=== PATIENT | female | born 1995 | race Caucasian/White ===

== ENCOUNTER 2017-05-24 23:53 | Emergency (ER) | payer MEDICAID, OTHER ==
[~2017-05-24] VITALS: Ht 157.5 cm; Wt 51.0 kg
[2017-05-24 23:55] VITALS: BP 124/76; PULSE 78; RESP 16; TEMP 98.8; O2SAT 100
[2017-05-25] MEDS ORDERED: SE-NTAB3 PO (00:01)
--- NOTE | 2017-05-25 00:31 | PD ---
HPI Chief Complaint: Related Problem Time Seen by Provider: 00:26 Travel History International Travel<30 days: No Contact w/Intl Traveler<30days: No Traveled to known affect area: No History of Present Illness HPI The patient is a 21 year old female reportedly at 6 weeks gestation based on her last menstrual cycle who presents to the [facility] emergency department with a history of 3 weeks of intermittent pelvic pain. She reports that the pain will last for 5 minutes at a time. She reports that it is a dull aching sensation at times associated with intermittent sharp pains. The patient reports that the pain is in the center of her abdomen down low over the suprapubic area. She reports that this morning she had vaginal spotting. She reports that this is the first time this is occurred. She is unsure of her blood type. Her last menstrual cycle was reportedly April 02. She reports having a positive test confirmed at the health department on a half weeks ago. She is scheduled for her first appointment with women's care on June 09. She denies having any nausea or vomiting. She reports that she has had some breast tenderness. A review of systems otherwise, she denies having any other vaginal discharge, fevers, cough, congestion, neck pain, chest pain, shortness of breath,diarrhea, urinary symptoms, or neurologic symptoms. [facility] Past Medical History Narrative Medical The patient's past medical history is reportedly None. ADHD: No Cancer: No Cardiovascular Problems: No Diabetes: No Diminished Hearing: No Psychiatric: No Migraines: No Seizures: No Thyroid Disease: No Ulcer: No ?: LMP: 04-09-17 : 1 Past Surgical History Narrative Surgical The Patient's past surgical history is significant for a left foot surgery. Other Surgery: No Social History Alcohol Use: No Tobacco Use: No Substance Use: No Allergies-Medications (Allergen,Severity, Reaction): Coded Allergies: No Known Allergies (Unverified Adverse Reaction, Unknown, 05/24/17) Reported Meds & Prescriptions Reported Meds & Active Scripts Active Clindamycin (Clindamycin HCl) 300 Mg Cap 300 Mg PO BID 7 Days Reported Se- 19 29-1 mg ( Vit W/ Docusate-Fe Fu) 29 Mg Iron-1 Mg-25 Mg Tab 1 Tab PO DAILY Review of Systems Except as stated in HPI: all other systems reviewed are Neg General / Constitutional: No: Fever Eyes: No: Visual changes HENT: No: Headaches Cardiovascular: No: Chest Pain or Discomfort Respiratory: No: Shortness of Breath Gastrointestinal: Positive: Abdominal Pain, No: Nausea, Vomiting, Diarrhea Genitourinary: Positive: Pelvic Pain, Vaginal Bleeding, No: Urgency, Frequency , Dysuria, Discharge Musculoskeletal: No: Pain Skin: No Rash Neurologic: No: Weakness Psychiatric: No: Depression Endocrine: No: Polydipsia Hematologic/Lymphatic: No: Easy Bruising Physical Exam Narrative General: The patient is a well-developed well-nourished female in no acute distress. Head and Neck exam: Head is normocephalic atraumatic. Eyes: EOMI, pupils are equal round and reactive to light. Nose: Midline septum with pink mucous membranes Mouth: Dentition unremarkable. Moist mucus membranes. Posterior oropharynx is not erythematous. No tonsillar hypertrophy. Uvula midline. Airway patent. Neck: No palpable lymphadenopathy. No nuchal rigidity. No thyromegaly. Cardiovascular: Regular rate and rhythm without murmurs, gallops, or rubs. No pulse deficit to the extremities. Lungs: Clear to auscultation bilaterally. No wheezes, rhonchi, or rales. Abdomen: Soft, with reported tenderness on palpation along the suprapubic area, no other tenderness on palpation of the other quadrants of the abdomen. No guarding, rebound, or rigidity. Normal bowel sounds are audible. No tenderness on palpation of McBurney's point. Negative Kramer's sign. Extremities: No clubbing, cyanosis, or edema. 2+ pulses in all 4 extremities. No calf tenderness on palpation. Back: No spinous process tenderness to palpation. No costovertebral angle tenderness to palpation. Neurologic Exam: Grossly nonfocal. Skin Exam: No rash noted. Intact skin that is warm and dry. Gynecologic exam: The patient was placed in the dorsal lithotomy position. Her external genitalia were examined. She had no evidence of rash or lesions. The speculum was placed into her vagina and the cervix was identified. She had a white to brown discharge. No cervical friability. On Bimanual exam: she has no cervical motion tenderness. Cervical os is closed. No adnexal tenderness or prominence noted on palpation. No uterine tenderness, however her uterus palpated to be slightly enlarged consistent with early . Data Data Last Documented VS Vital Signs Date Time Temp Pulse Resp B/P (MAP) Pulse Ox O2 Delivery O2 Flow Rate FiO2 05/25/17 04:40 68 18 115/70 (85) 100 05/24/17 23:55 98.8 Room Air Orders Orders Beta Hcg (Quant/Titer) (05/25/17 00:32) Complete Blood Count With Diff (05/25/17 00:32) Comprehensive Metabolic Panel (05/25/17 00:32) Gc And Chlamydia Pcr (05/25/17 00:32) Complete Rh (05/25/17 00:32) Us Pelvis (Ques Pr/Ect)W Trans (05/25/17 ) Wet Prep Profile (05/25/17 00:32) Urinalysis - C+S If Indicated (05/25/17 00:32) Iv Access Insert/Monitor (05/25/17 00:32) Ecg Monitoring (05/25/17 00:32) Sodium Chlor 0.9% 1000 Ml Inj (Ns 1000 M (05/25/17 00:32) Ed Urine Pregnancytest Poc (05/25/17 00:32) Ed Poc Ultrasound (05/25/17 00:32) Ceftriaxone Inj (Rocephin Inj) (05/25/17 02:15) Azithromycin Powd Pack (Zithromax Powd P (05/25/17 02:15) Labs Laboratory Tests Test 05/25/17 00:45 05/25/17 01:15 White Blood Count 11.9 TH/MM3 Red Blood Count 4.38 MIL/MM3 Hemoglobin 12.3 GM/DL Hematocrit 36.8 % Mean Corpuscular Volume 84.1 FL Mean Corpuscular Hemoglobin 28.2 PG Mean Corpuscular Hemoglobin Concent 33.5 % Red Cell Distribution Width 13.4 % Platelet Count 293 TH/MM3 Mean Platelet Volume 7.3 FL Neutrophils (%) (Auto) 73.3 % Lymphocytes (%) (Auto) 22.5 % Monocytes (%) (Auto) 3.6 % Eosinophils (%) (Auto) 0.4 % Basophils (%) (Auto) 0.2 % Neutrophils # (Auto) 8.7 TH/MM3 Lymphocytes # (Auto) 2.7 TH/MM3 Monocytes # (Auto) 0.4 TH/MM3 Eosinophils # (Auto) 0.0 TH/MM3 Basophils # (Auto) 0.0 TH/MM3 CBC Comment DIFF FINAL Differential Comment Urine Color YELLOW Urine Turbidity HAZY Urine pH 6.0 Urine Specific [place] 1.025 Urine Protein TRACE mg/dL Urine Glucose (UA) NEG mg/dL Urine Ketones 10 mg/dL Urine Occult Blood SMALL Urine Nitrite NEG Urine Bilirubin NEG Urine Urobilinogen LESS THAN 2.0 MG/DL Urine Leukocyte Esterase MOD Urine RBC LESS THAN 1 /hpf Urine WBC 4 /hpf Urine Squamous Epithelial Cells 3 /hpf Urine Bacteria RARE /hpf Urine Hyaline Casts 1 /lpf Urine Mucus FEW /lpf Microscopic Urinalysis Comment CULT NOT INDICATED Blood Urea Nitrogen 13 MG/DL Creatinine 0.62 MG/DL Random Glucose 92 MG/DL Total Protein 7.3 GM/DL Albumin 3.8 GM/DL Calcium Level 8.9 MG/DL Alkaline Phosphatase 50 U/L Aspartate Amino Transf (AST/SGOT) 13 U/L Alanine Aminotransferase (ALT/SGPT) 19 U/L Total Bilirubin 0.3 MG/DL Sodium Level 137 MEQ/L Potassium Level 3.1 MEQ/L Chloride Level 103 MEQ/L Carbon Dioxide Level 27.6 MEQ/L Anion Gap 6 MEQ/L Estimat Glomerular Filtration Rate 123 ML/MIN Human Chorionic Gonadotropin, Quant 08545 MIU/ML Clue Cells (Wet Prep) PRESENT Vaginal Trichomonas (Wet Prep) NONE SEEN Vaginal Yeast (Wet Prep) NONE SEEN Chlamydia trachomatis DNA (PCR) DETECTED Neisseria gonorrhoeae DNA (PCR) NOT DETECTED MDM Medical Decision Making Medical Screen Exam Complete: Yes Emergency Medical Condition: Yes Medical Record Reviewed: Yes Interpretation(s) Last Impressions Pelvis Ultrasound 05/25/17 0000 Signed Impressions: Service Date/Time: Thursday, May 25, 2017 02:47 - CONCLUSION: 1. Intrauterine dated between 5 and 6 weeks. 2. heart rate is not documented. 3. Free fluid in the cul-de-sac and about the right adnexa. Ryan Schreiber MD Differential Diagnosis Threatened miscarriage, versus ectopic , versus postcoital bleeding, versus cystitis, versus subchorionic hemorrhage Narrative Course During the course of the patients emergency department visit, the patients history, examination, and differential diagnosis were reviewed with the patient. The patient was placed on a pottery striper with oximetry and frequent blood pressure monitoring. The patient had IV access obtained and blood work sent for analysis. A transabdominal ultrasound was done by me which confirmed that the patient had uterine enlargement with what appeared to be a gestational sac, however no pole was identified or heart tones. A transvaginal ultrasound was ordered to further evaluate. The patient was initially provided normal saline 1 L IV fluid bolus The patients laboratory studies were reviewed and remarkable for white count of 11.9, hemoglobin 12.3, platelets 293 with 73.3, CMP is unremarkable. Quantitative beta hCG is 16,426, urinalysis shows 10 ketones moderate leukocyte esterase, rare bacteria, culture not indicated. Wet prep was positive for clue cells, GC and chlamydia was positive for chlamydia. The patient was treated with Rocephin 1 g IV, Zithromax 1 g by mouth. Radiology studies were reviewed and remarkable for transvaginal ultrasound showed an intrauterine dated between 5 and 6 weeks, heart rate is not documented were able to be identified, free fluid in the cul-de-sac and about the right adnexa is noted. I Spoke to the OB hospitalist, Dr. James regarding this patient at 4:29 AM. We did review the patient's laboratory studies and imaging studies. She was concerned that the patient's symptoms could be related to a demise, versus very early intrauterine . She recommended continued follow-up. The patient was instructed to have her quantitative beta hCG repeated in 2 days. She is instructed on bed rest and pelvic rest. The patient is resting comfortably and feels better, is alert and in no distress. The patients results and examination findings were discussed with the patient. The repeat examination is unremarkable and benign. The history, exam, diagnostic testing, and current condition do not suggest any significant pathology to warrant further testing, continued ED treatment, admission, or surgical evaluation at this point. The vital signs have been stable. The patient does not have uncontrollable pain, intractable vomiting, or other significant symptoms. The patient's condition is stable and appropriate for discharge. The patient will pursue further outpatient evaluation with a primary care physician or other designated or consulting physician as indicated in the discharge instructions. The patient expressed understanding and was agreeable with this plan. Procedures Procedure Narrative Emergency Department Pelvic ultrasound was performed with patient consent. The curvilinear probe was used in the transverse and sagittal views within the suprapubic region revealing an enlarged uterus with a suspected intrauterine , gestational sac identified, however no heart activity was able to be seen by transabdominal route. Diagnosis Primary Impression: Threatened miscarriage in early Additional Impressions: Chlamydia Bacterial vaginosis Referrals: Quality Assurance Calibrator 2 days Patient Instructions: Bacterial Vaginosis (ED), Chlamydia (ED), General Instructions, Threatened Miscarriage (ED) Additional Instructions: If you are unable to get into your manager marketing communications in the next few days follow back up in the emergency department for repeat quantitative beta hCG and reassessment. If pain increases in the meantime, report back immediately to the emergency department. Med/Other Pt SpecificInfo: No Change to Meds Scripts Clindamycin (Clindamycin) 300 Mg Cap 300 MG PO BID for Infection for 7 Days, #14 CAP 0 Refills Prov: Dennise Prince MD 05/25/17 Disposition: 01 DISCHARGE HOME Condition: Stable Dennise Prince MD May 25, 2017 00:31
[2017-05-25] MEDS ORDERED: SODIUM CHLOR 0.9% 1000 ML INJ 1,000 ML IV ONE (00:32)
[2017-05-25 01:04] LABS: AUTOMATED NEUTROPHIL # 8.7 TH/MM3 (1.8-7.7); BASOPHIL % 0.2 % (0.0-2.0); EOSINOPHIL % 0.4 % (0.0-4.0); HEMATOCRIT 36.8 % (35.0-46.0); HEMOGLOBIN 12.3 GM/DL (11.6-15.3); LYMPH % 22.5 % (9.0-44.0); LYMPHOCYTE # 2.7 TH/MM3 (1.0-4.8); MEAN CELL VOLUME 84.1 FL (80.0-100.0); MEAN CORPUSCULAR HEMOGLOBIN 28.2 PG (27.0-34.0); MEAN CORPUSCULAR HGB CONC 33.5 % (32.0-36.0); MEAN PLATELET VOLUME 7.3 FL (7.0-11.0); MONO % 3.6 % (0.0-8.0); MONOCYTE # 0.4 TH/MM3 (0-0.9); NEUT % 73.3 % (16.0-70.0); PLATELET COUNT 293 TH/MM3 (150-450); RED BLOOD COUNT 4.38 MIL/MM3 (4.00-5.30); RED CELL DISTRIBUTION WIDTH 13.4 % (11.6-17.2); WHITE BLOOD COUNT 11.9 TH/MM3 (4.0-11.0)
[2017-05-25 01:06] LABS: BACTERIA, URINE RARE /hpf; BILIRUBIN, URINE NEG (NEG); BLOOD, URINE SMALL (NEG); GLUCOSE,URINE NEG (NEG); HYALINE CAST, URINE 1 /lpf (RARE); KETONE, URINE 10 mg/dL (NEG); MUCUS URINE FEW /lpf (OCC); NITRITE,URINE NEG (NEG); SQUAMOUS EPITHELIAL CELL URINE 3 /hpf (0-5); URINE COLOR YELLOW (YELLW/STRAW); URINE LEUKOCYTE ESTERASE MOD (NEG)
[2017-05-25 01:23] LABS: ALBUMIN 3.8 GM/DL (3.4-5.0); ALT (GPT) 19 U/L (9-42); AST (GOT) 13 U/L (16-38); BICARBONATE 27.6 MEQ/L (21.0-32.0); BLOOD UREA NITROGEN 13 MG/DL (7-18); CALCIUM 8.9 MG/DL (8.5-10.1); CHLORIDE 103 MEQ/L (98-107); CREATININE 0.62 MG/DL (0.50-1.00); GLOMERULAR FILTRATION RATE 123 ML/MIN (>89); GLUCOSE,RANDOM 92 MG/DL (74-106); SODIUM (NA) 137 MEQ/L (136-145)
[2017-05-25 01:39] LABS: ALKALINE PHOSPHATASE 50 U/L (45-117); TOTAL BILIRUBIN ADULT 0.3 MG/DL (0.2-1.0); TOTAL PROTEIN 7.3 GM/DL (6.4-8.2)
[2017-05-25] MEDS ORDERED: cefTRIAXone INJ 1,000 MG in SODIUM CHLORIDE 0.9% INJ 100 ML IV ONE (02:15)
[2017-05-25] MEDS ORDERED: AZITHROMYCIN PWD FOR SUSP 1 GM PACKET PO ONE (02:15)
--- NOTE | 2017-05-25 04:00 | RADRPT ---
EXAM DATE/TIME: 05/25/2017 02:47 [place] COMPARISON: No previous studies available for comparison. INDICATIONS : Pelvic cramping and bleeding. LAB(S): Beta-hC,426 MEDICAL HISTORY : . SURGICAL HISTORY : Orthopedic surgery, left foot. ENCOUNTER: Initial ACUITY: 2 weeks PAIN SCORE: 7/10 LOCATION: Bilateral pelvis MEASUREMENTS: UTERUS: 10.2 x 6.9 x 5.6 cm ENDOMETRIAL STRIPE: 17 mm RIGHT OVARY: 2.9 x 1.9 x 1.8 cm LEFT OVARY: 3.7 x 2.1 x 2.4 cm FINDINGS: There is a gestational sac identified within the uterus which measures 1.7 x 2.0 x 0.7 cm, characteri stic of between 5 and 6 weeks gestation. A yolk sac is identified. pole measures 2 mm, also c haracteristic of between 5 and 6 week gestation. There is a thin hypoechoic area adjacent to the ges tational sac which may represent a subchorionic hemorrhage. heart rate is not documented. Both ovaries are identified and have a homogeneous echotexture and tiny follicular cysts. Mild amoun t of free fluid is seen in the cul-de-sac and about the right adnexa. CONCLUSION: 1. Intrauterine dated between 5 and 6 weeks. 2. heart rate is not documented. 3. Free fluid in the cul-de-sac and about the right adnexa. Ryan Schreiber MD on May 25, 2017 at 3:55 Board Certified Radiologist. This report was verified electronically.
[2017-05-25 04:40] VITALS: BP 115/70
[2017-05-25] MEDS ORDERED: CLIN300C5 PO (04:40)
== END 2017-05-25 04:50 | disposition home or self-care (01) ==
LOC: NEPC 23:53
DX: O20.0 Threatened abortion (principal); O98.811 Other maternal infectious and parasitic diseases complicating pregnancy, first trimester; O23.591 Infection of other part of genital tract in pregnancy, first trimester; Z3A.01 Less than 8 weeks gestation of pregnancy
CPT/HCPCS: 76700; 76817; 80053; 81001; 84702; 84703; 85025; 86901; 87210; 87491; 87591; 96361; 96365; 99285; J0696; J7030

== ENCOUNTER 2017-05-27 12:10 | Emergency (ER) | payer OTHER ==
[~2017-05-27 12:10] MED LIST: CLIN300C5 PO; SE-NTAB3 PO
[2017-05-27 12:11] VITALS: BP 108/65; PULSE 83; RESP 14; TEMP 97.5; O2SAT 98
--- NOTE | 2017-05-27 14:17 | PD ---
HPI Chief Complaint: Related Problem Time Seen by Provider: 14:11 Travel History International Travel<30 days: No Contact w/Intl Traveler<30days: No Traveled to known affect area: No History of Present Illness HPI 21-year-old female presents to the emergency department for follow-up of her hCG and symptoms from 2 days ago. Patient states that she only has scant spotting and only occasional mild cramping at this point. Patient denies fever or chills. Patient feels well and has been taking medication as prescribed. Patient has also been tried to hydrate and and feels better overall. She was unable to see her cardiac rn so she came here as directed. She has an appointment with her specialist June 09. She said she tried to call for an earlier appointment and this is not available. [facility] Past Medical History ADHD: No Cancer: No Cardiovascular Problems: No Diabetes: No Diminished Hearing: No Psychiatric: No Migraines: No Seizures: No Thyroid Disease: No Ulcer: No Tetanus Vaccination: > 5 Years Influenza Vaccination: No ?: : 1 Miscarriage: 1 Past Surgical History Other Surgery: No Social History Alcohol Use: No Tobacco Use: No Substance Use: No Allergies-Medications (Allergen,Severity, Reaction): Coded Allergies: No Known Allergies (Verified Adverse Reaction, Unknown, 05/27/17) Reported Meds & Prescriptions Reported Meds & Active Scripts Active Clindamycin (Clindamycin HCl) 300 Mg Cap 300 Mg PO BID 7 Days Review of Systems Except as stated in HPI: all other systems reviewed are Neg Physical Exam Narrative GENERAL: Well-nourished, well-developed patient. SKIN: Focused skin assessment warm/dry. HEAD: Normocephalic. EYES: No scleral icterus. No injection or drainage. NECK: Supple, trachea midline. No JVD or lymphadenopathy. CARDIOVASCULAR: Regular rate and rhythm without murmurs, gallops, or rubs. RESPIRATORY: Breath sounds equal bilaterally. No accessory muscle use. GASTROINTESTINAL: Abdomen soft, non-tender, nondistended. No CVA tenderness MUSCULOSKELETAL: No cyanosis, or edema. BACK: Nontender without obvious deformity. No CVA tenderness. Data Data Last Documented VS Vital Signs Date Time Temp Pulse Resp B/P (MAP) Pulse Ox O2 Delivery O2 Flow Rate FiO2 05/27/17 14:30 97.8 781 16 110/76 (87) 99 Orders Orders Beta Hcg (Quant/Titer) (05/27/17 12:39) Ed Discharge Order (05/27/17 14:29) Labs Laboratory Tests Test 05/27/17 12:49 Human Chorionic Gonadotropin, Quant 14141 MIU/ML MDM Medical Decision Making Medical Screen Exam Complete: Yes Emergency Medical Condition: Yes Differential Diagnosis Threatened miscarriage, spontaneous , missed , status Narrative Course 21-year-old female presents to the emergency department for follow-up of her hCG and symptoms from 2 days ago. Patient states that she only has scant spotting and only occasional mild cramping at this point. Patient denies fever or chills. Patient feels well and has been taking medication as prescribed. Patient has also been tried to hydrate and and feels better overall. She was unable to see her cardiac rn so she came here as directed. She has an appointment with her specialist June 09. She said she tried to call for an earlier appointment and this is not available. Vital signs stable. Laboratory Tests Test 05/27/17 12:49 Human Chorionic Gonadotropin, Quant [id number] MIU/ML HCG appropriately increasing. Patient symptoms have decreased significantly. She is stable, well-appearing. Patient to follow up with her vehicle upholsterer as scheduled. Advised to return to the hospital for worsening or persistent symptoms. Diagnosis Primary Impression: Threatened Referrals: Heat Treat Worker Primary Care Physician Additional Instructions: Follow-up the primary care physician within 2-3 days. Follow-up with her vehicle upholsterer as discussed. If your symptoms worsen or persists return to the emergency department. Continue medication as discussed. Disposition: 01 DISCHARGE HOME Condition: Stable Teresa Mayberry May 27, 2017 14:17
[2017-05-27 14:30] VITALS: BP 110/76; TEMP 97.8
== END 2017-05-27 14:30 | disposition home or self-care (01) ==
LOC: NEPD 12:10
DX: O20.0 Threatened abortion (principal); Z3A.00 Weeks of gestation of pregnancy not specified
CPT/HCPCS: 84702; 99282

== ENCOUNTER → 2017-11-02 | Outpatient (CLI) | payer MEDICAID ==
[~2017-11-02] MED LIST changes: -SE-NTAB3 PO
== END ==
LOC: HPND 12:31
PROVIDERS: ATTEND Obstetrics & Gynecology
DX: O35.8XX0 Maternal care for other (suspected) fetal abnormality and damage, not applicable or unspecified (principal); O28.3 Abnormal ultrasonic finding on antenatal screening of mother; O35.1XX0 Maternal care for (suspected) chromosomal abnormality in fetus, not applicable or unspecified
CPT/HCPCS: 76811